=== PATIENT | female | born 1960 | race Caucasian/White ===

== ENCOUNTER 2022-03-11 18:42 | Emergency (ER) | payer OTHER ==
[~2022-03-11] VITALS: Ht 165.1 cm; Wt 86.2 kg
[2022-03-11] MEDS ORDERED: TDAP DIPH,PERTUSS,TET VAC/PF 0.5 ML DISP.SYRIN IM ONE ×3 (20:30→21:19)
[2022-03-11] MEDS ORDERED: KETOROLAC TROMETHAMINE 60 MG INJ IM ONE ×2 (20:30→21:06)
[2022-03-11] MEDS ORDERED: CEPH500C2 PO (21:25)
[2022-03-11] MEDS ORDERED: IBUP-1957 PO (21:25)
[2022-03-11 21:42] VITALS: BP 137/100
== END 2022-03-11 21:35 | disposition home or self-care (01) ==
LOC: ER 18:42
DX: S80.811A Abrasion, right lower leg, initial encounter (principal); M79.661 Pain in right lower leg; L03.032 Cellulitis of left toe; W10.9XXA Fall (on) (from) unspecified stairs and steps, initial encounter; Y92.89 Other specified places as the place of occurrence of the external cause; R03.0 Elevated blood-pressure reading, without diagnosis of hypertension
CPT/HCPCS: 99284; 93971; 73590; 73660; 90715; 96372; 90471; J1885; A4663